=== PATIENT | male | born 1975 | race Two or more races ===

== ENCOUNTER 2020-07-15 07:10 | Emergency (ER) | payer MEDICAID, OTHER ==
[~2020-07-15] VITALS: Ht 172.7 cm; Wt 89.8 kg
[2020-07-15 07:38] VITALS: BP 136/103
[2020-07-15] MEDS ORDERED: ACETAMINOPHEN 500 MG TAB PO ONE (08:00)
== END 2020-07-15 09:12 | disposition home or self-care (01) ==
LOC: ER 07:10
DX: S00.83XA Contusion of other part of head, initial encounter (principal); J45.909 Unspecified asthma, uncomplicated; V43.62XA Car passenger injured in collision with other type car in traffic accident, initial encounter; Y93.89 Activity, other specified; Y92.488 Other paved roadways as the place of occurrence of the external cause; Y99.8 Other external cause status
CPT/HCPCS: 70450; 93005